=== PATIENT | female | born 1965 | race Caucasian/White ===

== ENCOUNTER 2016-11-19 08:35 | Day surgery (SDC) | payer OTHER ==
[~2016-11-19] VITALS: Ht 170.2 cm; Wt 119.7 kg
[~2016-11-19 08:35] MED LIST: ADVAIR 250/501 DISK IH; AMBIEN10 MG PO; CALCIUM 500 MG1 EACH PO; MULTI VITAMIN1 EACH PO; OMEPRAZOLE20 M2 PO; ZESTORETIC 20-1 EAC1 PO; ZYRTEC10 M3 PO
[2016-11-19 09:05] VITALS: BP 100/52
[2016-11-19] MEDS ORDERED: NORCO 5/3251 TABLET PO (12:37)
[2016-11-19 16:01] VITALS: BP 118/59
[2016-11-19 17:10] VITALS: BP 112/66
[2016-11-19 18:46] VITALS: BP 100/60
== END 2016-11-19 19:01 | disposition home or self-care (01) ==
LOC: SDC 08:35
PROC: 0HBU0ZZ Excision of Left Breast, Open Approach (ICD-10-PCS; principal; 2016-11-19)
DX: D05.12 Intraductal carcinoma in situ of left breast (principal); Z17.1 Estrogen receptor negative status [ER-]; I10 Essential (primary) hypertension; J45.909 Unspecified asthma, uncomplicated; E66.9 Obesity, unspecified; Z68.41 Body mass index [BMI] 40.0-44.9, adult; K21.9 Gastro-esophageal reflux disease without esophagitis; Z80.49 Family history of malignant neoplasm of other genital organs
CPT/HCPCS: 88307; J0330; J0690; J1100; J1170; J2250; J2405; J2710; J2765; J3010; S0020